=== PATIENT | female | born 1980 | race American Indian/Alaskan Native ===

== ENCOUNTER 2021-03-13 19:37 | Emergency (ER) | payer SELFPAY ==
[2021-03-13] MEDS ORDERED: ASPIRIN 325 MG TAB PO ONE (22:11)
--- NOTE | 2021-03-13 23:04 | XRay Report ---
CHEST 2 VIEWS INDICATION / CLINICAL INFORMATION: CP. COMPARISON: None available. FINDINGS: SUPPORT DEVICES: None. HEART / MEDIASTINUM: No significant abnormality. LUNGS / PLEURA: No significant pulmonary or pleural abnormality. No pneumothorax. ADDITIONAL FINDINGS: No significant additional findings. IMPRESSION: 1. No acute findings. Signer Name: Gildardo Hernandez MD Signed: 03/13/2021 10:59 PM Workstation Name: [id number]
[2021-03-14 00:08] LABS: Alanine Aminotransferase 11 units/L (7-56); Blood Urea Nitrogen 7 mg/dL (7-17); Hemolysis Index 1
[2021-03-14 00:34] LABS: BUN/Creatinine Ratio 10
[2021-03-14 00:46] LABS: Basophils # (Auto) 0.2 K/mm3 (0.0-0.1); Basophils % (Auto) 1.2 % (0.0-1.8); Eosinophils % (Auto) 0.2 % (0.0-4.3); Hematocrit 41.6 % (30.3-42.9); Hemoglobin 13.5 gm/dl (10.1-14.3); Lymphocytes # (Auto) 3.3 K/mm3 (1.2-5.4); Lymphocytes % (Auto) 18.3 % (13.4-35.0); Mean Corpuscular HGB Conc 32 % (30-34); Mean Corpuscular Volume 75 fl (79-97); Monocytes # (Auto) 0.8 K/mm3 (0.0-0.8); Monocytes % (Auto) 4.4 % (0.0-7.3); Platelet Count 324 K/mm3 (140-440); Red Blood Count 5.58 M/mm3 (3.65-5.03); Red Cell Distribution Width 17.2 % (13.2-15.2)
[2021-03-14 08:55] VITALS: BP 139/92
--- NOTE | 2021-03-14 09:05 | Emergency Department Report ---
ED Chest Pain HPI - General Chief Complaint: Chest Pain Stated Complaint: CHEST PAIN/DIZZY/HEADACHE/BODYACHES Time Seen by Provider: 03/14/21 08:28 Source: patient Mode of arrival: Ambulatory Limitations: No Limitations - History of Present Illness Initial Comments: This is a 40-year-old -Cypriot female who presents to the emergency department with a complaint of a 1 to 2-day history of generalized chest discomfort that she describes as a pressure, a generalized headache, nonspecific dizziness/lightheadedness, a mild sore throat and itchy ears. The patient says "I think I may have a sinus infection." The patient took some Tylenol which h elped with her symptoms. The patient has been in the emergency department waiting room for many hours prior to being brought back to the main emergency department and having her chart presented for evaluation. At the time of my initial examination she says that the headache has greatly improved, if not resolved, and the chest pressure is also very mild. The patient does not have any known past medical history. She denies any tobacco or illicit drug use. No recent travel or sick contacts at home. The patient has received one of her 2 Covid vaccinations and is due for the second 1 tonight. Severity scale (0 -10): 4 - Related Data Previous Rx's Medication Instructions Recorded Last Taken Type Albuterol Mdi (or & Nicu Only) 2 puff IH QID PRN #8.5 gram 03/14/21 Unknown Rx [ProAir HFA Inhaler] Azithromycin [Zithromax Z-TAYLOR] 250 mg PO DAILY #6 tab 03/14/21 Unknown Rx Cetirizine HCl [Zyrtec 10mg tab] 10 mg PO QDAY #15 tablet 03/14/21 Unknown Rx Fluticasone [Flonase] 1 spray NS QDAY #1 bottle 03/14/21 Unknown Rx Allergies Allergy/AdvReac Type Severity Reaction Status Date / Time No Known Allergies Allergy Unverified 03/13/21 22:10 Heart Score - HEART Score History: Slightly suspicious EKG: Normal Age: < 45 Risk factors: No known risk factors Troponin: < normal limit HEART Score: 0 - EKG Read Time Time EKG Completed: 22:17 EKG Read Time: 22:23 - Critical Actions Critical Actions: 0-3 pts:0.9-1.7%risk of adverse cardiac event.Candidate for discharge ED Review of Systems ROS: Stated complaint: CHEST PAIN/DIZZY/HEADACHE/BODYACHES Other details as noted in HPI Comment: All other systems reviewed and negative Constitutional: denies: chills, fever Eyes: denies: eye pain, vision change ENT: ear pain, throat pain Respiratory: shortness of breath. denies: cough Cardiovascular: chest pain. denies: edema Gastrointestinal: denies: abdominal pain, vomiting Genitourinary: denies: dysuria, discharge Musculoskeletal: denies: back pain, arthralgia Skin: denies: rash, lesions Neurological: headache, other (dizziness/lightheaded). 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 - Surgical History Past Surgical History?: No - Medications Home Medications: Home Medications Medication Instructions Recorded Confirmed Last Taken Type Albuterol Mdi (or & Nicu Only) 2 puff IH QID PRN #8.5 gram 03/14/21 Unknown Rx [ProAir HFA Inhaler] Azithromycin [Zithromax Z-TAYLOR] 250 mg PO DAILY #6 tab 03/14/21 Unknown Rx Cetirizine HCl [Zyrtec 10mg tab] 10 mg PO QDAY #15 tablet 03/14/21 Unknown Rx Fluticasone [Flonase] 1 spray NS QDAY #1 bottle 03/14/21 Unknown Rx ED Physical Exam - General Limitations: No Limitations - Other Other exam information: GENERAL: The patient is well-developed well-nourished. HENT: Normocephalic. Atraumatic. Patient has moist mucous membranes. Oropharynx is clear without tonsillar perjury, erythema or exudates. There is reproducible sinus tenderness to palpation. EYES: Extraocular motions are intact. No nystagmus. NECK: Supple. Trachea is midline. CHEST/LUNGS: Clear to auscultation. There is no respiratory distress noted. HEART/CARDIOVASCULAR: Regular. There is no tachycardia. There is no murmur. ABDOMEN: Abdomen is soft, nontender. Patient has normal bowel sounds. Obese habitus. SKIN: Skin is warm and dry. NEURO: The patient is awake, alert, and oriented. The patient is cooperative. The patient has no focal neurologic deficits. Normal speech. Cranial nerves II through XII grossly intact. No facial asymmetry. No pronator drift or dysmetria. MUSCULOSKELETAL: There is no tenderness or deformity. There is no limitation range of motion. ED Course Vital Signs 03/13/21 03/14/21 03/14/21 22:10 08:22 08:51 Temperature 101.3 F H 98.4 F Pulse Rate 125 H 102 H Respiratory 20 18 Rate Blood Pressure 139/92 Blood Pressure 144/81 [Right] O2 Sat by Pulse 97 96 98 Oximetry JESSEE score - Jessee Score Age > 65: (0) No Aspirin use within the Past 7 Days: (0) No 3 or more CAD Risk Factors: (0) No 2 or more Angina events in past 24 hrs: (1) Yes Known CAD with more than 50% Stenosis: (0) No Elevated Cardiac Markers: (0) No ST Deviation Greater than 0.5mm: (0) No JESSEE Score: 1 ED Medical Decision Making - Lab Data Result diagrams: 03/13/21 23:07 03/13/21 23:07 Lab Results 03/13/21 03/13/21 03/14/21 Range/Units 23:07 23:07 01:41 WBC 18.0 H (4.5-11.0) K/mm3 RBC 5.58 H (3.65-5.03) M/mm3 Hgb 13.5 (10.1-14.3) gm/dl Hct 41.6 (30.3-42.9) % MCV 75 L (79-97) fl MCH 24 L (28-32) pg MCHC 32 (30-34) % RDW 17.2 H (13.2-15.2) % Plt Count 324 (140-440) K/mm3 Lymph % (Auto) 18.3 (13.4-35.0) % Gila % (Auto) 4.4 (0.0-7.3) % Eos % (Auto) 0.2 (0.0-4.3) % Baso % (Auto) 1.2 (0.0-1.8) % Lymph # (Auto) 3.3 (1.2-5.4) K/mm3 Gila # (Auto) 0.8 (0.0-0.8) K/mm3 Eos # (Auto) 0.0 (0.0-0.4) K/mm3 Baso # (Auto) 0.2 H (0.0-0.1) K/mm3 Seg Neutrophils % 75.9 H (40.0-70.0) % Seg Neutrophils # 13.7 H (1.8-7.7) K/mm3 Sodium 135 L (137-145) mmol/L Potassium 4.1 (3.6-5.0) mmol/L Chloride 100.0 (98-107) mmol/L Carbon Dioxide 23 (22-30) mmol/L Anion Gap 16 mmol/L BUN 7 (7-17) mg/dL Creatinine 0.7 (0.6-1.2) mg/dL Estimated GFR > 60 ml/min BUN/Creatinine Ratio 10 % Glucose 89 (65-100) mg/dL Calcium 9.0 (8.4-10.2) mg/dL Total Bilirubin 0.60 (0.1-1.2) mg/dL AST 12 (5-40) units/L ALT 11 (7-56) units/L Alkaline Phosphatase 89 (35-129) units/L Troponin T < 0.010 < 0.010 (0.00-0.029) ng/mL Total Protein 8.1 (6.3-8.2) g/dL Albumin 4.0 (3.9-5) g/dL Albumin/Globulin Ratio 1.0 % Influenza A (Rapid) (Negative) Influenza B (Rapid) (Negative) Group A Strep Rapid (Negative) 03/14/21 03/14/21 Range/Units 06:42 08:52 WBC (4.5-11.0) K/mm3 RBC (3.65-5.03) M/mm3 Hgb (10.1-14.3) gm/dl Hct (30.3-42.9) % MCV (79-97) fl MCH (28-32) pg MCHC (30-34) % RDW (13.2-15.2) % Plt Count (140-440) K/mm3 Lymph % (Auto) (13.4-35.0) % Gila % (Auto) (0.0-7.3) % Eos % (Auto) (0.0-4.3) % Baso % (Auto) (0.0-1.8) % Lymph # (Auto) (1.2-5.4) K/mm3 Gila # (Auto) (0.0-0.8) K/mm3 Eos # (Auto) (0.0-0.4) K/mm3 Baso # (Auto) (0.0-0.1) K/mm3 Seg Neutrophils % (40.0-70.0) % Seg Neutrophils # (1.8-7.7) K/mm3 Sodium (137-145) mmol/L Potassium (3.6-5.0) mmol/L Chloride (98-107) mmol/L Carbon Dioxide (22-30) mmol/L Anion Gap mmol/L BUN (7-17) mg/dL Creatinine (0.6-1.2) mg/dL Estimated GFR ml/min BUN/Creatinine Ratio % Glucose (65-100) mg/dL Calcium (8.4-10.2) mg/dL Total Bilirubin (0.1-1.2) mg/dL AST (5-40) units/L ALT (7-56) units/L Alkaline Phosphatase (35-129) units/L Troponin T < 0.010 (0.00-0.029) ng/mL Total Protein (6.3-8.2) g/dL Albumin (3.9-5) g/dL Albumin/Globulin Ratio % Influenza A (Rapid) Negative (Negative) Influenza B (Rapid) Negative (Negative) Group A Strep Rapid Negative (Negative) - EKG Data -: EKG Interpreted by Nc EKG shows normal: sinus rhythm, axis, intervals, QRS complexes, ST-T waves Rate: tachycardia (121 bpm) - EKG Data When compared to previous EKG there are: previous EKG unavailable Interpretation: other (Sinus tachycardia at 121 bpm, normal axis, normal intervals, no ST elevation WA) - Radiology Data Radiology results: image reviewed interpreted by nm: Chest x-ray does not show any acute process. There are no pleural effusions, obvious pneumonia and there is no pneumothorax. No widened mediastinum. - Medical Decision Making This patient presents with some generalized chest discomfort that she describes as a pressure, generalized headache without any neurological deficits, body aches, sinus pain/pressure, intermittent shortness of breath. On examination the patient does not have any focal, motor or sensory deficits and her cranial nerves are intact. Heart and lung sounds are normal to ausculta tion and she does not appear in any respiratory or acute distress. EKG does not have any morphology consistent with ST elevation myocardial infarction or any arrhythmia. Chest x-ray does not show any pneumonia, pleural effusions, pneumothorax, widened mediastinum, or any other acute process. The patient's labs have been unremarkable including metabolic panel, negative troponins x3, negative rapid strep and flu test. CBC did show a leukocytosis of 18,000. Patient does not have any dysuria. There is no rash or cellulitis. Chest x-ray did not show pneumonia. This mild leukocytosis may be secondary to the patient's frontal and maxillary sinus discomfort showing acute sinusitis. For this reason, and not the URI, the patient will be placed on antibiotics. She will also be given a prescription for an albuterol inhaler, Flonase nasal spray, and Zyrtec. Given this current pandemic, we also discussed outpatient COVID-19 testing as I am unable to do [id number] testing at this time. She will return to the emergency department with any worsening of her symptoms or with any acute di stress. Critical Care Time: No Critical care attestation.: If time is entered above; I have spent that time in minutes in the direct care of this critically ill patient, excluding procedure time. ED Disposition Clinical Impression: Atypical chest pain Sinusitis Qualifiers: Sinusitis location: unspecified location Chronicity: acute Recurrence: not specified as recurrent Qualified Code(s): J01.90 - Acute sinusitis, unspecified Upper respiratory infection Qualifiers: URI type: unspecified URI Qualified Code(s): J06.9 - Acute upper respiratory infection, unspecified Disposition: HOME / SELF CARE / HOMELESS Is pt being admited?: No Condition: Stable Instructions: Nonspecific Chest Pain, Adult Additional Instructions: Please follow-up with a primary care physician in the next few days. Due to your generalized chest discomfort, I have given you a referral for a [facility] tightening machine operator, Dr. Martinez. Take all medications as prescribed. You can take Tylenol every 4-6 hours and ibuprofen every 6-8 hours, using dosing on the back of the bottle, as needed for any fever or body aches. Return to the emergency department with any worsening of your symptoms, new or concerning symptoms not addressed during this current emergency department visit, or with any acute distress. Given your upper respiratory infection type symptoms, and this current pandemic, it is a possibility that you could have a COVID-19 infection. I do not have the capability of testing you for this at this time. Please quarantine/isolate yourself from anybody who is immunocompromised, unvaccinated, elderly, chronically ill/debilitated. I recommend that you seek outpatient COVID-19 testing. This can be done at some primary care offices, some urgent cares, and there should be a listing of testing sites through the [place] Department of [facility]. Prescriptions: Fluticasone [Flonase] 1 spray NS QDAY #1 bottle Albuterol Mdi (or & Nicu Only) [ProAir HFA Inhaler] 2 puff IH QID PRN #8.5 gram PRN Reason: Shortness Of Breath Azithromycin [Zithromax Z-TAYLOR] 250 mg PO DAILY #6 tab Cetirizine HCl [Zyrtec 10mg tab] 10 mg PO QDAY #15 tablet Referrals: PRIMARY CAREMD [Primary Care Provider] - 3-5 Days IRENE MIN MD [Staff Physician] - 3-5 Days GOMEZ MARTINEZ MD [Staff Physician] - 3-5 Days [facility] [Provider Group] - 3-5 Days Forms: Accompanied Note Time of Disposition: 09:44
--- NOTE | 2021-03-14 11:08 | Electrocardiograph Report ---
[facility] Test Date: 2021-03-13 Test Time: 22:17:01 Pat Name: RHIANNON DIALLO Department: Room: Gender: F Hvac Maintenance Technician: BG : 1980 Requested By: ED DOC Order Number: [id number] Reading MD: Parveen Mcduffie Measurements Intervals [place] Rate: 121 P: 61 MO: 171 QRS: 26 QRSD: 74 T: 33 QT: 309 QTc: 439 Interpretive Statements Sinus tachycardia Probable left atrial enlargement No previous ECG available for comparison Electronically Signed On 03-14-2021 11:07:49 EDT by Parveen Mcduffie
== END 2021-03-14 10:07 | disposition home or self-care (01) ==
LOC: ED 19:37
DX: J06.9 Acute upper respiratory infection, unspecified (principal); R07.9 Chest pain, unspecified; J32.9 Chronic sinusitis, unspecified; Z79.899 Other long term (current) drug therapy
CPT/HCPCS: 36415; 71046; 80053; 84484; 85025; 87116; 87400; 87430; 93005